=== PATIENT | male | born 1990 | race Caucasian/White ===

== ENCOUNTER 2021-09-04 19:59 | Emergency (ER) | payer OTHER ==
[~2021-09-04] VITALS: Ht 165.1 cm; Wt 65.8 kg
[2021-09-04] MEDS ORDERED: IPRAT-ALBUT 0.5-3 ML IH (22:05)
[2021-09-04] MEDS ORDERED: ZITHROMAX500 MG PO (22:05)
== END 2021-09-04 22:14 | disposition home or self-care (01) ==
LOC: ER 19:59
DX: J06.9 Acute upper respiratory infection, unspecified (principal); Z20.822 Contact with and (suspected) exposure to COVID-19

== ENCOUNTER 2021-10-11 15:38 | Emergency (ER) | payer OTHER ==
[~2021-10-11] VITALS: Ht 165.1 cm; Wt 68.0 kg
[~2021-10-11 15:38] MED LIST: IPRAT-ALBUT 0.5-3 ML IH; ZITHROMAX500 MG PO
[2021-10-11] MEDS ORDERED: ACTINEL LIQUID474 ML PO (20:45)
[2021-10-11] MEDS ORDERED: MEDROLPACK PO (20:45)
[2021-10-11] MEDS ORDERED: ZITHROMAX500 MG PO (20:45)
== END 2021-10-11 20:52 | disposition home or self-care (01) ==
LOC: ER 15:38
DX: J06.9 Acute upper respiratory infection, unspecified (principal); B34.9 Viral infection, unspecified; Z20.822 Contact with and (suspected) exposure to COVID-19

== ENCOUNTER 2021-12-22 15:33 | Emergency (ER) | payer OTHER ==
[~2021-12-22] VITALS: Ht 165.1 cm; Wt 69.4 kg
[~2021-12-22 15:33] MED LIST changes: +ACTINEL LIQUID474 ML PO; +MEDROLPACK PO
== END 2021-12-22 17:54 | disposition home or self-care (01) ==
LOC: ER 15:33
DX: N48.9 Disorder of penis, unspecified (principal)